=== PATIENT | male | born 1995 | race Caucasian/White ===

== ENCOUNTER 2017-12-01 08:51 | Emergency (ER) | payer SELFPAY ==
[2017-12-01] MEDS ORDERED: LET GEL TOPICAL 1 EA SYR TP ONE (09:34)
--- NOTE | 2017-12-01 09:34 | EDPHY ---
General Time Seen by Provider: 12/01/17 09:29 Narrative: CHIEF COMPLAINT: Laceration HISTORY OF PRESENT ILLNESS: Patient presents with complaints of laceration. He says he was going up some steps when a "trencher" fell off the roof. This is a device used to remove shingles. He says that it "stabbed in the left hand,"causing a laceration. This is involving the left palm left thenar eminence. This happened at 8:00 a.m. Today. Significant pain with movement. Minimal at rest. No radiating pain. No numbness, tingling or weakness. No pulsatile bleeding. No other associated complaints or modifying factors. Right-hand dominant TIME OF INJURY: 8:00 a.m. Today TETANUS STATUS: Less than 5 years ago MEDICAL/SURGICAL/SOCIAL HISTORY: Uncomplicated. No surgical history. Nonsmoker. Lives and works here independently. REVIEW OF SYSTEMS: Ten systems reviewed and are negative unless otherwise noted in the HPI EXAMINATION General Appearance: Alert, no distress Head: normocephalic, atraumatic Cardiovascular: Symmetric radial pulses 2+. Brisk cap refill the fingers left hand. 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 3 cm laceration to the left palm and thenar eminence. No underlying tendon injury. No foreign body. Neuro intact distally. Extremities: Tenderness in the left palm injury. There is dried blood surrounding it. There is no pulsatile bleeding. Range of motion of the left hand is symmetric to the right, including superficialis and profundus flexors. DIFFERENTIAL DIAGNOSES: Including but not limited to laceration, complex laceration, laceration foreign body, laceration with arterial injury, laceration with tendon injury MDM: 9:35 a.m. Acute laceration to the left palm and portion of the thenar eminence. There is no evidence of foreign body. No evidence of tendon injury. He has full range of motion of the fingers and thumb. No pulsatile bleeding. Tetanus up-to- date. Will anesthetize the wound and irrigate. I have ordered x-ray for possibly foreign body fracture. 9:50 a.m. X-ray as read by me, without the aid of radiologist, reveals no acute findings. 10:30 a.m. Laceration has been repaired without difficulty. Excellent approximation of the wound borders. There was minimal excisional debridement. Wound care discussed. ED precautions discussed. This is a work related injury and he need to contact his worker's compensation Clinic. Sutures will need to be removed in 10-14 days. Discharged stable condition PROCEDURE: Laceration repair Consent: Verbal Location: Left palm thenar eminence Length of repair: 3 cm Complexity: Complex and jagged Layer involvement: Single layer Anesthesia: Topical let and Local, 0.5% Marcaine plain. 5 mL Irrigation: Extensive Debridement: Minimal excisional debridement Procedure description: Following good anesthesia, the wound was copiously irrigated. Wound bed was explored with a sterile glove, and there is no foreign body noted. Minimal excisional debridement performed. Wound borders were approximated well with good hemostasis. Tolerated well without complication. Suture/Staple material: 4-0 Prolene, 8 simple interrupted sutures Wound care: Routine as discussed Suture/Staple removal: 10-14 Days SUPERVISION: This patient was independently evaluated without direct involvement of or examination by the attending physician. ED Precautions: Worsening pain. Erythema, edema, cyanosis, pallor, paresthesia or anesthesia. - History Smoking Status: Never smoked - Objective Vital Signs: Initial Vital Signs Temperature (C) 98.6 F 12/01/17 09:03 Heart Rate 74 12/01/17 09:03 Respiratory Rate 17 12/01/17 09:03 Blood Pressure 119/64 12/01/17 09:03 O2 Sat (%) 97 12/01/17 09:03 O2 Delivery Mode Room Air Allergies/Adverse Reactions: No Known Allergies Allergy (Unverified 12/01/17 09:02) Home Medications: Medication Instructions Recorded oxyCODONE HCL/ACETAMINOPHEN 1 each PO Q4-6PRN PRN #5 tablet 12/01/17 [Percocet 5-325 mg Tablet] Departure - Departure Disposition: Home, Routine, Self-Care Clinical Impression: Laceration of hand without complication, excluding fingers Qualifiers: Encounter type: initial encounter Laterality: left Qualified Code(s): S61.412A - Laceration without foreign body of left hand, initial encounter Condition: Good Instructions: Care For Your Stitches (ED), Laceration (ED) Additional Instructions: 1. Thin layer of bacitracin once daily for the next 2 days 2. Keep the wound covered while showering for the next 3 days 3. Daily wound care as discussed 4. Return here for suture removal in 7 days 5. Return here for signs of infection as discussed including warmth, redness, fever, drainage from the site 6. return here for increasing pain surrounding the laceration 7. Do not submerge the wound in any water, hot tub, swimming pool until sutures removed Referrals: Anselmo Flores MD [Medical Doctor] - As per Instructions (As needed) Physician,Emergency DeptMD [Medical Doctor] - As per Instructions (10-14 days for suture removal) Stand Alone Forms: Work Limited Duty, Work Comp Follow Up Prescriptions: oxyCODONE HCL/ACETAMINOPHEN [Percocet 5-325 mg Tablet] 1 each PO Q4-6PRN PRN #5 tablet PRN Reason: Pain, Breakthrough
[2017-12-01 11:08] VITALS: BP 124/86
== END 2017-12-01 11:07 | disposition home or self-care (01) ==
PROC: 0HQGXZZ Repair Left Hand Skin, External Approach (ICD-10-PCS; principal; 2017-12-01)
DX: S61.412A Laceration without foreign body of left hand, initial encounter (principal); W20.8XXA Other cause of strike by thrown, projected or falling object, initial encounter; Y99.9 Unspecified external cause status; Y93.9 Activity, unspecified; Y92.9 Unspecified place or not applicable